=== PATIENT | female | born 1980 | race Caucasian/White ===

== ENCOUNTER 2016-10-18 22:02 | Emergency (ER) | payer MEDICAID ==
[~2016-10-18 22:02] MED LIST: COLACE-DPS100 MG PO; DELTASONE DPS20 MG PO; FOLVITE-DPS1 MG PO; HABITROL DPS7 MG TD; HYDROCODONE 7.7.5 MG PO; METHOTREXATE2.5 MG PO; MIRALAX PACKET17 GM PO; OXY IR DPS10 MG PO; PERCOCET 5 DPS1 TAB PO; PROTONIX40 MG PO; SENOKOT S1 TAB PO; SIMPONI50 MG/0.1 SQ; TYLENOL DPS325 MG PO; TYLENOL EXTRA500 M1 PO; VISTARIL-DPS50 MG PO; XARELTO10 MG PO; ZESTRIL DPS40 MG PO; ZOLOFT DPS100 MG PO
--- NOTE | 2016-10-20 00:39 | ER ---
ADMIT: 10/18/2016 RM/LOC: ER [facility] MR#: [id number] [place], [place] [id number] GEORGE TILLMAN I [address] [address] Emergency Room Report SEX: F AGE: 36 : 1980 DATE: 10/18/2016 TIME: 2202 hours. Please refer to my T-sheet for complete H and P. HISTORY OF PRESENT ILLNESS: Briefly, the patient is a 36-year-old, who comes with arthritis flare, right hand pain. She states that she is currently on methotrexate and Humira, and she recently ran out of her prednisone 2 days ago. Now, she is flared up with severe swelling of her joints. PHYSICAL EXAMINATION: VITAL SIGNS: Stable. She is afebrile. HEENT: Grossly normal. EXTREMITIES: She has severe rheumatoid changes on her right hand, especially PIP joint of her long and ring fingers, significantly swollen, . EMERGENCY DEPARTMENT COURSE: I gave her prednisone 40 mg p.o., two hydrocodone, she is ready for discharge. ASSESSMENT: 1. Right hand rheumatoid arthritis flare. 2. Nicotine abuse. PLAN: Stop smoking. Return if worse. Put her back on a prednisone, and I gave her #15 [place] and follow up with Dr. Washington as needed. Ketan Rodriguez MD/ angy JOB #: [id number] CC: Ketan Rodriguez MD, Attending Physician Gabino Washington MD, Family Physician
== END 2016-10-18 22:40 | disposition home or self-care (01) ==
LOC: ER 22:02
DX: M06.9 Rheumatoid arthritis, unspecified (principal); F17.210 Nicotine dependence, cigarettes, uncomplicated; Z79.899 Other long term (current) drug therapy

== ENCOUNTER → 2016-12-21 | Outpatient (CLI) | payer MEDICAID | END | disposition home or self-care (01) | LOC: RAD.S 12-01 23:00 | DX: E05.90 Thyrotoxicosis, unspecified without thyrotoxic crisis or storm (principal) ==

== ENCOUNTER 2017-04-09 18:37 | Emergency (ER) | payer MEDICAID | END 2017-04-09 21:10 | disposition home or self-care (01) | LOC: ER 18:37 | DX: M06.9 Rheumatoid arthritis, unspecified (principal); F17.210 Nicotine dependence, cigarettes, uncomplicated; Z79.899 Other long term (current) drug therapy ==